=== PATIENT | male | born 1990 | race Caucasian/White ===

== ENCOUNTER 2017-06-29 11:29 | Emergency (ER) | payer MEDICAID, OTHER ==
[2017-06-29] MEDS: HYDROCODONE/APAP (5/325) TAB PO (12:43)
[2017-06-29] MEDS: DIPHTH/TET/ACEL PERTUSS (ADULT) 0.5 ML VIAL IM* (12:45)
[2017-06-29] MEDS: LIDOCAINE 1% (MDV) 10 ML INJ INJ (12:58)
== END 2017-06-29 18:00 | disposition home or self-care (01) ==
LOC: FTE 11:29
DX: S71.111A Laceration without foreign body, right thigh, initial encounter (principal); W26.8XXA Contact with other sharp object(s), not elsewhere classified, initial encounter; Y92.9 Unspecified place or not applicable; Z23 Encounter for immunization
CPT/HCPCS: 12002; 90471; 90715; 99284-25

== ENCOUNTER 2017-07-01 11:18 | Emergency (ER) | payer MEDICAID | END 2017-07-01 11:33 | disposition home or self-care (01) | LOC: E/R 11:18 | DX: Z48.01 Encounter for change or removal of surgical wound dressing (principal) | CPT/HCPCS: 99281; Z7502 ==

== ENCOUNTER 2017-07-08 19:56 | Emergency (ER) | payer MEDICAID | END 2017-07-08 20:23 | disposition home or self-care (01) | LOC: E/R 20:23 | DX: Z48.02 Encounter for removal of sutures (principal) | CPT/HCPCS: 99281; Z7502 ==